=== PATIENT | female | born 1995 | race Caucasian/White ===

== ENCOUNTER 2019-09-14 06:06 | Emergency (ER) | payer BC ==
[~2019-09-14] VITALS: Ht 154.9 cm; Wt 43.1 kg
--- NOTE | 2019-09-14 06:07 | NUR ---
[id number] FROM HOME FOR N/V AND ABD PAIN SINCE 12AM, PT AWAKE, ALERT, -SOB, NAD NOTED, VSS, PENDING MD DAVILA
[2019-09-14] MEDS ORDERED: MORPHINE SULFATE INJ 4 MG/ML DISP.SYRIN ONE (06:26)
[2019-09-14] MEDS ORDERED: ONDANSETRON HCL/PF 4 MG/2 ML VIAL ONE (06:26)
[2019-09-14] MEDS ORDERED: ONDANSETRON HCL/PF 4 MG/2 ML VIAL IVP ONE (06:30)
[2019-09-14] MEDS ORDERED: IV NS 0.9% 1,000 ML BAG IV ONE (06:30)
[2019-09-14] MEDS ORDERED: LORAZEPAM INJ 2 MG/ML VIAL IV ONE (06:30)
[2019-09-14] MEDS ORDERED: MORPHINE SULFATE INJ 2 MG/ML DISP.SYRIN IV ONE (06:30)
[2019-09-14] MEDS ORDERED: LORAZEPAM INJ 2 MG/ML VIAL ONE (06:33)
[2019-09-14 06:50] LABS: BASOPHILS % (AUTO) 0.3 % (0.0-2.0); EOSINOPHILS % (AUTO) 0.3 % (0.0-6.0); HEMATOCRIT 42 % (33-45); HEMOGLOBIN 13.8 g/dL (11.5-14.8); LYMPHOCYTES # (AUTO) 2.6 /CMM (0.8-4.8); LYMPHOCYTES % (AUTO) 19.6 % (20.0-44.0); MEAN CORPUSCULAR HGB CONC 33 g/dl (31.0-36.0); MEAN CORPUSCULAR VOLUME 91 fL (82-100); MONOCYTES # (AUTO) 0.9 /CMM (0.1-1.30); NEUTROPHILS # (AUTO) 9.8 /CMM (1.8-8.9); NEUTROPHILS % (AUTO) 72.8 % (43.0-81.0); PLATELET COUNT (AUTO) 294 /CMM (150-450); RED BLOOD CELL COUNT(AUTO) 4.59 MIL/uL (4.0-5.2); WHITE BLOOD COUNT (AUTO) 13.4 K/uL (4.3-11.0)
[2019-09-14 06:56] LABS: CALCIUM, SERUM 9.9 mg/dL (8.5-10.1); CREATININE 1.2 mg/dL (0.6-1.3); POTASSIUM 3.5 mmol/L (3.5-5.1)
[2019-09-14 07:02] LABS: ALBUMIN 5.1 g/dL (3.4-5.0); BILIRUBIN,DIRECT 0.2 mg/dL (0.0-0.2); BILIRUBIN,TOTAL 0.8 mg/dL (0.2-1.0); TOTAL PROTEIN, SERUM 8.2 g/dL (6.4-8.2)
--- NOTE | 2019-09-14 07:49 | NUR ---
IV removed. Catheter intact and site benign. Pressure and 4x4 applied to site. No bleeding noted. Patient discharged to home in stable condition. Written and verbal after care instructions given. Patient verbalizes understanding of instruction.
[2019-09-14 07:50] VITALS: BP 121/72
== END 2019-09-14 07:50 | disposition home or self-care (01) ==
LOC: ER 06:08
DX: R11.15 Cyclical vomiting syndrome unrelated to migraine (principal)
CPT/HCPCS: 36415; 80048; 80076; 83690; 85025; 96361; 96374; 96375; 99284; J2060; J2270; J2405

== ENCOUNTER 2019-09-14 15:02 | Emergency (ER) | payer BC ==
[~2019-09-14] VITALS: Ht 152.4 cm; Wt 43.1 kg
[2019-09-14] MEDS ORDERED: ONDANSETRON HCL/PF 4 MG/2 ML VIAL ONE ×2 (15:21→16:27)
[2019-09-14] MEDS ORDERED: MORPHINE SULFATE INJ 4 MG/ML DISP.SYRIN ONE (15:22)
[2019-09-14] MEDS ORDERED: LORAZEPAM INJ 2 MG/ML VIAL ONE (15:22)
[2019-09-14 15:28] LABS: BASOPHILS % (AUTO) 0.3 % (0.0-2.0); HEMATOCRIT 38 % (33-45); HEMOGLOBIN 12.7 g/dL (11.5-14.8); LYMPHOCYTES # (AUTO) 1.3 /CMM (0.8-4.8); LYMPHOCYTES % (AUTO) 11.3 % (20.0-44.0); MEAN CORPUSCULAR HGB CONC 33 g/dl (31.0-36.0); MEAN CORPUSCULAR VOLUME 91 fL (82-100); MONOCYTES # (AUTO) 0.5 /CMM (0.1-1.30); MONOCYTES % (AUTO) 4.8 % (2.0-12.0); NEUTROPHILS # (AUTO) 9.5 /CMM (1.8-8.9); NEUTROPHILS % (AUTO) 83.6 % (43.0-81.0); PLATELET COUNT (AUTO) 279 /CMM (150-450); WHITE BLOOD COUNT (AUTO) 11.4 K/uL (4.3-11.0)
[2019-09-14] MEDS ORDERED: MORPHINE SULFATE INJ 2 MG/ML DISP.SYRIN IV ONE (15:30)
[2019-09-14] MEDS ORDERED: IV NS 0.9% 1,000 ML BAG IV ONE (15:30)
[2019-09-14] MEDS ORDERED: LORAZEPAM INJ 2 MG/ML VIAL IV ONE (15:30)
[2019-09-14] MEDS ORDERED: ONDANSETRON HCL/PF 4 MG/2 ML VIAL IVP ONE (15:30)
--- NOTE | 2019-09-14 15:32 | NUR ---
patient came in to the er c/o and pain and nausea vomiting since 1300, On room air, breathing evenly and unlabored. connected to the monitor and pulse ox. kept comfortable, will continue to monitor accordingly.
[2019-09-14 15:45] LABS: BILIRUBIN,DIRECT 0.2 mg/dL (0.0-0.2); BILIRUBIN,TOTAL 0.9 mg/dL (0.2-1.0); CALCIUM, SERUM 9.6 mg/dL (8.5-10.1); POTASSIUM 3.4 mmol/L (3.5-5.1); TOTAL PROTEIN, SERUM 7.6 g/dL (6.4-8.2)
[2019-09-14] MEDS ORDERED: IV D5/ 0.9% NACL 1,000 ML IV STA (15:57)
[2019-09-14] MEDS ORDERED: ONDANSETRON HCL/PF 4 MG/2 ML VIAL IV ONE (16:30)
[2019-09-14 17:29] VITALS: BP 140/81
--- NOTE | 2019-09-14 17:30 | NUR ---
Patient discharged to home in stable condition. Written and verbal after care instructions given. Patient verbalizes understanding of instruction.IV removed. Catheter intact and site benign. Pressure and 4x4 applied to site. No bleeding noted.
== END 2019-09-14 17:29 | disposition home or self-care (01) ==
LOC: ER 15:06
DX: R11.15 Cyclical vomiting syndrome unrelated to migraine (principal); R10.84 Generalized abdominal pain
CPT/HCPCS: 36415; 80048; 80076; 83690; 85025; 96361; 96365; 96375; 96376; 99284; J2060; J2270; J2405 ×2; J7042